=== PATIENT | male | born 1955 | race Caucasian/White ===

== ENCOUNTER 2018-07-29 13:20 | Inpatient (IN) | payer OTHER ==
[2018-07-29 17:28] VITALS: BMI 49.6
--- NOTE | 2018-07-29 18:27 | HP ---
CIWA Score Nausea/Vomitin-Mild Nausea/No Vomiting Muscle Tremors: 2 Anxiety: 1-Mildly Anxious Agitation: 3 Paroxysmal Sweats: 3 Orientation: 0-Oriented Tacttile Disturbances: 0-None Auditory Disturbances: 0-None Visual Disturbances: 0-None Headache: 2-Mild CIWA-Ar Total Score: 12 - Admission Criteria OASAS Guidelines: Admission for Medically Managed Detox: Requires at least one of the followin. CIWA greater than 12 2. Seizures within the past 24 hours 3. Delirium tremens within the past 24 hours 4. Hallucinations within the past 24 hours 5. Acute intervention needed for co occurring medical disorder 6. Acute intervention needed for co occurring psychiatric disorder 7. Severe withdrawal that cannot be handled at a lower level of care (continued vomiting, continued diarrhea, abnormal vital signs) requiring intravenous medication and/or fluids 8. Patient presents the following: CIWA greater than 12 Admission Criteria Met: Admission criteria met Admission ROS [facility] Chief Complaint: here for alcohol detox, on oxycodone for back pain 63 yo h/o asthma, high cholesterol, lives with daughter in the [place]. Mostly turkish speaking. Says he drinks every day. Say he has 7 hours a day of home care services for back pain. Says we went ER- 3 days ago becuase he felt sick, after he left the ER started drinking again. says he drank a lot yesterday and today. PCP- Dr. Higgins, [address] [place] [address] in [place] alcohol- drinks a lot of vodka and beer DUr/Istop: oxydocone 30mg #60 on 07/21/18 and every month for the last year for back pain. Utox- negative for all substances tested, TAMMI 0.179 Allergies/Adverse Reactions: Allergies Allergy/AdvReac Type Severity Reaction Status Date / Time No Known Allergies Allergy Verified 04/18/13 19:39 - Ebola screening Have you traveled outside of the country in the last 21 days: No Have you had contact with anyone from an Ebola affected area: No Patient History - Patient Medical History Hx Anemia: No Hx Asthma: Yes Hx Chronic Obstructive Pulmonary Disease (COPD): Yes Hx Cancer: No Hx Cardiac Disorders: No Hx Congestive Heart Failure: No Hx Hypertension: No Hx Hypercholesterolemia: Yes Hx Pacemaker: No HX Cerebrovascular Accident: No Hx Seizures: No Hx Dementia: No Hx Diabetes: No Hx Gastrointestinal Disorders: Yes Hx Liver Disease: No Hx Genitourinary Disorders: No Hx Renal Disease (ESRD): No Hx Thyroid Disease: No Hx Human Immunodeficiency Virus (HIV): No Hx Hepatitis C: No Hx Depression: No Hx Suicide Attempt: No Hx Bipolar Disorder: No Hx Schizophrenia: No - Patient Surgical History Past Surgical History: Yes Hx Orthopedic Surgery: Yes (RT. CARPAL TUNNEL ) - PPD History Documented Results: Negative w/o proof Date: 04/20/13 - Smoking Cessation Smoking history: Current every day smoker Aproximately how many cigarettes per day: 20 Hx Chewing Tobacco Use: No Initiated information on smoking cessation: Yes 'Breaking Loose' booklet given: 07/29/18 - Substance & Tx. History Hx Alcohol Use: Yes Substance Use Type: Opiates, Prescribed Hx Substance Use Treatment: Yes - Substances abused Alcohol Substance route: Oral Frequency: Daily Amount used: 1 pint vodka Age of first use: 8 Date of last use: 07/29/18 Family Disease History - Family Disease History Family Disease History: CA: Mother, Other: Father (ALCOHOLIC) Admission Physical Exam S - Vital Signs Vital Signs: Vital Signs - 24 hr 07/29/18 17:25 Temperature 97.7 F Pulse Rate 79 Respiratory 20 Rate Blood Pressure 128/82 - Physical General Appearance: Yes: Mild Distress, Alcohol on Breath HEENTM: Yes: Within Normal Limits, EOMI, Hearing grossly Normal, Normal Voice, JASON Respiratory: Yes: Within Normal Limits, No Accessory Muscle Use Neck: Yes: Within Normal Limits Cardiology: Yes: Within Normal Limits, Regular Rhythm, Regular Rate, S1, S2 Abdominal: Yes: Within Normal Limits, Normal Bowel Sounds, Tenderness (RUQ mild tenderness, no rebound, guarding) Back: Yes: Within Normal Limits Musculoskeletal: Yes: Within Normal Limits, full range of Motion, Gait Steady Extremities: Yes: Within Normal Limits, Other (superficial abrasion lateral aspect of R foot) Integumentary: Yes: Within Normal Limits Lymphatic: Yes: Within Normal Limits - Diagnostic (1) Alcohol use disorder Current Visit: Yes Status: Acute (2) Back pain Current Visit: Yes Status: Acute (3) Asthma Current Visit: Yes Status: Acute Breathalyzer - Breathalyzer Breathalyzer: 0.179 Urine Drug Screen - Test Device Lot number: [id number] Expiration date: 07/02/19 - Control Is test valid?: Yes - Results Drug screen NEGATIVE: Yes Inpatient Rehab Admission - Rehab Decision to Admit Inpatient rehab admission?: No
[2018-07-29] MEDS ORDERED: hydrOXYzine PAMOATE 25 MG CAPSULE (FP) PO PRN (18:35)
[2018-07-29] MEDS ORDERED: LORazepam 1 MG TABLET PO PRN (18:35)
[2018-07-29] MEDS ORDERED: IBUPROFEN 400 MG TABLET (FP) PO PRN ×2 (18:35)
[2018-07-29] MEDS ORDERED: MENTHOL/PHENOL 1 EACH UD MM PRN (18:35)
[2018-07-29] MEDS ORDERED: MELATONIN 5 MG TABLETS PO PRN (18:35)
[2018-07-29] MEDS ORDERED: MAGNESIUM CITRATE 300 ML BOTTLE PO PRN (18:35)
[2018-07-29] MEDS ORDERED: BISMUTH SUBSALICYLATE 524 MG/30 ML UD PO PRN (18:35)
[2018-07-29] MEDS ORDERED: ONDANSETRON *ODT* 4 MG TABLET SL PRN (18:35)
[2018-07-29] MEDS ORDERED: MAGNESIUM HYDROX 2400MG/30ML ORAL SUSPENSION 30 ML CUP PO PRN (18:35)
[2018-07-29] MEDS ORDERED: METHOCARBAMOL 500 MG TABLET PO PRN (18:35)
[2018-07-29] MEDS ORDERED: MAG HYDROX/AL HYDROX/SIMETH 30 ML UNIT-DOSE CUP PO PRN (18:35)
[2018-07-29] MEDS ORDERED: ACETAMINOPHEN 325 MG TABLET (FP) PO PRN (18:35)
[2018-07-29] MEDS ORDERED: BACLOFEN 10 MG TABLET (FP) PO PRN (18:38)
[2018-07-29] MEDS: ALBUTEROL SO4 8 GM HFA INHALER IH PRN (20:28)
[2018-07-29] MEDS: THIAMINE HCL 100 MG TABLET (FP) PO SCH (22:21)
[2018-07-29] MEDS: GABAPENTIN 300 MG CAPSULE (FP) PO SCH (22:22)
[2018-07-29] MEDS: LORazepam 2 MG TABLET PO SCH (22:22)
[2018-07-30] MEDS: LORazepam 2 MG TABLET PO SCH ×3 (06:35→17:16)
[2018-07-30 07:34] LABS: EPI CELLS 0.4 /HPF (0-5/HPF); HYALINE CASTS 1 /lpf (0-8); URINE APPEARANCE CLEAR; URINE BACTERIA 2.4 /hpf (NEGATIVE); URINE BILIRUBIN NEGATIVE (NEGATIVE); URINE COLOR YELLOW; URINE GLUCOSE (UA) NEGATIVE (NEGATIVE); URINE KETONE NEGATIVE (NEGATIVE); URINE LEUK ESTERASE NEGATIVE (NEGATIVE); URINE NITRITE NEGATIVE (NEGATIVE); URINE PROTEIN 1+ (NEGATIVE); URINE RBC 1 /hpf (0-4); URINE WBC 0 /hpf (0-5)
[2018-07-30 10:07] LABS: HEMOGLOBIN 15.6 GM/dL (11.7-16.9); MCH 30.8 pg (25.7-33.7); MCHC 33.9 g/dl (32.0-35.9); MEAN CELL VOLUME 90.9 fl (80-96); MEAN PLT VOLUME 8.3 fl (7.5-11.1); PLATELET COUNT 250 K/MM3 (134-434); RBC 5.06 M/mm3 (4.00-5.60); RDW 13.2 % (11.9-15.9); WHITE BLOOD COUNT 11.3 K/mm3 (4.0-10.0)
[2018-07-30] MEDS: PRENATAL VITAMINS W/ FOLIC ACID TABLET (FP) PO SCH (10:16)
[2018-07-30] MEDS: GABAPENTIN 300 MG CAPSULE (FP) PO SCH ×2 (10:16→22:28)
[2018-07-30] MEDS: NICOTINE 21 MG/24 HOURS TOPICAL PATCH TD SCH (10:16)
[2018-07-30] MEDS: ALBUTEROL SO4 8 GM HFA INHALER IH PRN (10:20)
[2018-07-30 10:21] LABS: BILIRUBIN,TOTAL 1.1 mg/dL (0.2-1); CALCIUM 9.4 mg/dL (8.5-10.1); CREATININE 1.1 mg/dL (0.55-1.3); POTASSIUM 3.7 mmol/L (3.5-5.1); TOT PROT 7.4 g/dl (6.4-8.2)
[2018-07-30] MEDS ORDERED: guaiFENesin 200 MG/10 ML 10 ML UNIT-DOSE CUPS PO PRN (10:28)
--- NOTE | 2018-07-30 15:47 | PN ---
S CIWA - CIWA Score Nausea/Vomitin Muscle Tremors: None Anxiety: 2 Agitation: 1-Slight > Activity Paroxysmal Sweats: No Perspiration Orientation: 2-Disoriented Date<2 days Tacttile Disturbances: 2-Mild Itch/Numbness/Burn Auditory Disturbances: 2-Mild Harshness/Frighten Visual Disturbances: 0-None Headache: 0-None Present CIWA-Ar Total Score: 14 BHS Progress Note (SOAP) Subjective: Vomiting, Diarrhea, Body Aches. Objective: PATIENT A & O X 2 (UNCERTAIN ABOUT CURRENT DAY / DATE). PATIENT OBSERVED AMBULATING ON UNIT UNASSISTED. IN NO ACUTE DISTRESS. 07/30/18 15:46 Vital Signs Temperature 98.2 F 07/30/18 15:28 Pulse Rate 97 H 07/30/18 15:28 Respiratory Rate 18 07/30/18 15:28 Blood Pressure 140/83 07/30/18 15:28 O2 Sat by Pulse Oximetry (%) PATIENT AFEBRILE. Laboratory Tests 07/29/18 07/30/18 07/30/18 19:50 07:00 07:00 WBC 11.3 H RBC 5.06 Hgb 15.6 Hct 46.0 MCV 90.9 MCH 30.8 MCHC 33.9 RDW 13.2 Plt Count 250 D MPV 8.3 Sodium 135 L Potassium 3.7 Chloride 95 L Carbon Dioxide 26 Anion Gap 14 BUN 15 Creatinine 1.1 Est GFR (CKD-EPI)AfAm 82.37 Est GFR (CKD-EPI)NonAf 71.07 Random Glucose 94 Calcium 9.4 Total Bilirubin 1.1 H AST 74 H ALT 47 Alkaline Phosphatase 82 Total Protein 7.4 Albumin 4.0 Urine Color Yellow Urine Appearance Clear Urine pH 6.0 Ur Specific Tovey 1.017 Urine Protein 1+ H Urine Glucose (UA) Negative Urine Ketones Negative Urine Blood 1+ H Urine Nitrite Negative Urine Bilirubin Negative Urine Urobilinogen 1.0 Ur Leukocyte Esterase Negative Urine WBC (Auto) 0 Urine RBC (Auto) 1 Urine Casts (Auto) 1 U Epithel Cells (Auto) 0.4 Urine Bacteria (Auto) 2.4 RPR Titer 07/30/18 07:00 WBC RBC Hgb Hct MCV MCH MCHC RDW Plt Count MPV Sodium Potassium Chloride Carbon Dioxide Anion Gap BUN Creatinine Est GFR (CKD-EPI)AfAm Est GFR (CKD-EPI)NonAf Random Glucose Calcium Total Bilirubin AST ALT Alkaline Phosphatase Total Protein Albumin Urine Color Urine Appearance Urine pH Ur Specific Tovey Urine Protein Urine Glucose (UA) Urine Ketones Urine Blood Urine Nitrite Urine Bilirubin Urine Urobilinogen Ur Leukocyte Esterase Urine WBC (Auto) Urine RBC (Auto) Urine Casts (Auto) U Epithel Cells (Auto) Urine Bacteria (Auto) RPR Titer Nonreactive LABS NOTED. 07/30/18 15:46 Assessment: 07/30/18 15:47 WITHDRAWAL SYMPTOMS. LEUKOCYTOSIS. Plan: CONTINUE DETOX. INCREASE DAILY PO FLUID / WATER INTAKE. REPEAT CBC TOMORROW AM FOR ELEVATED WBC LEVEL NOTED ON DETOX ADMISSION.
--- NOTE | 2018-07-30 17:20 | EKG ---
Test Reason : Blood Pressure : / mmHG Vent. Rate : 074 BPM Atrial Rate : 074 BPM P-R Int : 172 ms QRS Dur : 084 ms QT Int : 402 ms P-R-T Axes : 048 080 082 degrees QTc Int : 446 ms NORMAL SINUS RHYTHM NORMAL ECG NO PREVIOUS ECGS AVAILABLE Confirmed by SISSY CASEY, IRON ([id number]) on 07/30/2018 5:19:44 PM Referred By: RADHIKA HUNTER Confirmed By:IRON SHEEHAN MD
[2018-07-30] MEDS ORDERED: LORazepam 0.5 MG TABLET ONE (21:26)
[2018-07-30] MEDS: BACITRACIN 15 GM TUBE TOPICAL OINTMENT TP SCH (22:27)
[2018-07-30] MEDS: THIAMINE HCL 100 MG TABLET (FP) PO SCH (22:28)
[2018-07-30] MEDS: LORazepam 1 MG TABLET PO SCH (22:29)
[2018-07-31] MEDS: LORazepam 1 MG TABLET PO SCH ×3 (06:23→16:59)
[2018-07-31] MEDS ORDERED: BACITRACIN 0.9 GM PACKET ONE (09:18)
[2018-07-31 10:30] LABS: BASO % 0.4 % (0-2.0); EOS % 1.6 % (0-4.5); HEMATOCRIT 44.4 % (35.4-49); LYMPH % 29.9 % (8-40); MCH 31.3 pg (25.7-33.7); MCHC 33.8 g/dl (32.0-35.9); MEAN CELL VOLUME 92.5 fl (80-96); MEAN PLT VOLUME 8.6 fl (7.5-11.1); MONO % 10.1 % (3.8-10.2); PLATELET COUNT 213 K/MM3 (134-434); RBC 4.79 M/mm3 (4.00-5.60); RDW 13.2 % (11.9-15.9); WHITE BLOOD COUNT 8.3 K/mm3 (4.0-10.0)
[2018-07-31] MEDS: PRENATAL VITAMINS W/ FOLIC ACID TABLET (FP) PO SCH (10:48)
[2018-07-31] MEDS: NICOTINE 21 MG/24 HOURS TOPICAL PATCH TD SCH (10:48)
[2018-07-31] MEDS: GABAPENTIN 300 MG CAPSULE (FP) PO SCH ×2 (10:50→23:06)
[2018-07-31] MEDS: BACITRACIN 15 GM TUBE TOPICAL OINTMENT TP SCH ×2 (10:50→23:06)
--- NOTE | 2018-07-31 12:13 | PN ---
S CIWA - CIWA Score Nausea/Vomitin Muscle Tremors: 2 Anxiety: 2 Agitation: 2 Paroxysmal Sweats: 1-Minimal Palms Moist Orientation: 0-Oriented Tacttile Disturbances: 1-Very Mild Itch/Numbness Auditory Disturbances: 1-Very Mild Visual Disturbances: 0-None Headache: 2-Mild CIWA-Ar Total Score: 13 BHS Progress Note (SOAP) Subjective: alert,irritable,anxious,interrupted sleep,tremor Objective: 07/31/18 12:11 Vital Signs Temperature 97.9 F 07/31/18 09:54 Pulse Rate 74 07/31/18 09:54 Respiratory Rate 18 07/31/18 09:54 Blood Pressure 119/74 07/31/18 09:54 O2 Sat by Pulse Oximetry (%) 07/31/18 12:11 Laboratory Results - last 24 hr 07/30/18 07/31/18 07:00 07:30 WBC 8.3 RBC 4.79 Hgb 15.0 Hct 44.4 MCV 92.5 MCH 31.3 MCHC 33.8 RDW 13.2 Plt Count 213 MPV 8.6 Absolute Neuts (auto) 4.8 Neutrophils % 58.0 Lymphocytes % 29.9 Monocytes % 10.1 Eosinophils % 1.6 Basophils % 0.4 Nucleated RBC % 0 RPR Titer Nonreactive repeat cbc wbc is 8.3 normal Assessment: 07/31/18 12:12 withdrawal symptom Plan: continue detox
[2018-07-31] MEDS ORDERED: LORazepam 0.5 MG TABLET PO PRN (23:00)
[2018-07-31] MEDS: LORazepam 0.5 MG TABLET PO SCH (23:05)
[2018-07-31] MEDS: THIAMINE HCL 100 MG TABLET (FP) PO SCH (23:05)
[2018-07-31] MEDS: ALBUTEROL SO4 8 GM HFA INHALER IH PRN (23:18)
[2018-08-01] MEDS: LORazepam 0.5 MG TABLET PO SCH (06:04)
[2018-08-01 06:38] VITALS: BP 98/69; PULSE 73; TEMP 98.2
--- NOTE | 2018-08-01 09:00 | DS ---
[facility] Detox Discharge Summary Admission Date: 07/29/18 Discharge Date: 08/01/18 - History Present History: Alcohol Dependence - Physical Exam Results Vital Signs: Vital Signs Temperature 98.2 F 08/01/18 06:37 Pulse Rate 73 08/01/18 06:37 Respiratory Rate 18 08/01/18 06:37 Blood Pressure 98/69 08/01/18 06:37 O2 Sat by Pulse Oximetry (%) - Treatment Hospital Course: Detox Protocol Followed, Detoxed Safely, Responded well, Discharged Condition Good, Rehab Referral Accepted - Medication Discharge Medications: Ambulatory Orders Albuterol Sulfate Inhaler - [Ventolin HFA Inhaler -] 2 inh PO Q4H 04/18/13 Gabapentin 300 mg PO BID 07/29/18 - Diagnosis (1) Alcohol use disorder Current Visit: Yes Status: Acute (2) Asthma Current Visit: Yes Status: Chronic Qualifiers: Asthma severity: mild Asthma complication type: unspecified (3) Back pain Current Visit: Yes Status: Chronic Qualifiers: Back pain location: low back pain Back pain laterality: unspecified (4) Chronic alcoholism Current Visit: Yes Status: Acute Qualifiers: Substance use status: uncomplicated Qualified Code(s): F10.20 - Alcohol dependence, uncomplicated (5) Chronic obstructive pulmonary disease Current Visit: Yes Status: Chronic Qualifiers: Emphysema type: unspecified - AMA Did Patient Leave Against Medical Advice: No (pt declined: referred to [facility] )
== END 2018-08-01 09:13 | disposition home or self-care (01) | DRG 775 ==
LOC: YASAS 13:20 → Y6N 19:31
PROVIDERS: ADMIT Surgery; ATTEND Surgery
PROC: HZ2ZZZZ Detoxification Services for Substance Abuse Treatment (ICD-10-PCS; principal; 2018-07-29)
DX: F10.230 Alcohol dependence with withdrawal, uncomplicated (principal); F17.210 Nicotine dependence, cigarettes, uncomplicated; J44.9 Chronic obstructive pulmonary disease, unspecified; M54.5 Low back pain; G89.29 Other chronic pain; D72.829 Elevated white blood cell count, unspecified; E78.00 Pure hypercholesterolemia, unspecified
CPT/HCPCS: 36415; 80053; 81003; 85025; 85027; 86593; 93005; 93010; Q0162